=== PATIENT | female | born 1935 | race Caucasian/White ===

== ENCOUNTER 2016-08-15 12:22 | Emergency (ER) | payer MEDICARE, OTHER ==
[2016-08-15] MEDS ORDERED: DIPHTH,PERTUSS(ACELL),TET VAC 0.5 ML VIAL IM ONE ×2 (14:47→14:57)
--- OUTSIDE RECORDS SUMMARY | 2016-08-15 14:52 | XMS REPORT | Continuity of Care Document ---
:1935 Author Organization [facility] Address [address] [place] [address] Phone [phone] Care Team Providers Name Role Phone Cleveland Hanson Primary Care Provider [phone] Source Comments This disclosure is being made pursuant to the Care Everywhere program, applicable federal and state laws, and may not contain all informaitonavailable regarding this patient.[facility] ([facility]) Active Allergies and Adverse Reactions Allergen Noted Date Severity Reactions Comments Cefadroxil Unknown Codeine Stomach Pain Erythromycin 01/16/2012 Urticaria (Hives) Penicillins Urticaria (Hives),Desquamation Current Medications Prescription Sig. Disp. Refills Start Date End Date Status levothyroxine 200 mcg Take 200 mcg by Active tablet mouth every morning before breakfast. dexlansoprazole Take by mouth. Active (DEXILANT) 30 mg CpDM lovaSTATIN 20 mg tablet Take 20 mg by mouth Active every evening. montelukast (SINGULAIR) Take 10 mg by mouth Active 10 mg tablet daily. CHLORHEXIDINE GLUCONATE apply topically. Active EX ALBUTEROL SULFATE INH Use by inhalation. Active fexofenadine 180 mg Take 180 mg by Active tablet mouth daily. albuterol-ipratropium Use 3 mL by Active 2.5-0.5 mg/3 mL inhalation every 6 inhalation solution hours as needed. budesonide (PULMICORT) Use 250 mcg by Active 0.25 mg/2 mL nebulizer inhalation 2 times suspension daily. Vitamin B Comp & C No.4 Take by mouth. Active (SUPER B COMPLEX + C) 150 mg Tab Calcium & Magnesium Take by mouth. Active Carbonates 311-232 mg Tab Flaxseed Oil 1,000 mg cap Take by mouth. Active Mwfcmwszwaqtp-Xo-Cqxa-Min Take by mouth. Active erals (WOMEN'S DAILY MULTIVITAMIN) 18-0.4 mg Tab docusate (STOOL SOFTENER) Take 100 mg by Active 100 mg capsule mouth 2 times daily as needed. aspirin 325 mg EC tablet Take 325 mg by Active mouth daily. Arformoterol (BROVANA) 15 Use by inhalation. 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 18 08/21/2003 9:44 AM CDT Height 1.575 m (5' 2") 01/16/2012 9:31 AM CDT Weight 117.028 kg (258 lb) 01/16/2012 9:31 AM CDT Body Mass Index 47.18 01/16/2012 9:31 AM CDT Oxygen Saturation - - Plan of Care Health Maintenance Due Date Last Done Comments Hepatitis B Vaccine (1 of 3 - Primary Series) 1935 Tdap Vaccine 1948 Lipid Disorder Screening 11/25/1955 Td Vaccine 11/25/1955 Mammogram 1977 Colonoscopy 1987 Zoster Vaccine 1997 Osteoporosis Screening (DXA Bone Density) 2002 Pneumococcal Vaccine (1 of 2 - PCV13) 2002 Influenza Vaccine: Seasonal (#1) 11/30/2015 05/01/2002 HCC Annual Coding Diabetes without Complication 05/01/2016 Results from Last 3 Months Not on file
--- NOTE | 2016-08-15 14:56 | ERNOTE ---
Medical Problem HPI - General Chief Complaint: Laceration Time Seen by Provider: 08/15/16 14:36 Source: patient Exam Limitations: no limitations - Immun/Allergies/Home Medications Immunizations: IMMUNIZATION HX Immunizations Up to Date Yes History of Influenza Vaccine No Hx Pneumococcal Vaccination Yes Allergies/Adverse Reactions: Allergies lidocaine Allergy (Severe, Verified 08/15/16 12:39) Shortness of Breath Penicillins Allergy (Severe, Verified 08/15/16 12:39) Hives bacitracin [From Triple Antibiotic] Allergy (Intermediate, Verified 08/15/16 12: 39) Swelling (Other) bacitracin zinc [From Triple Antibiotic] Allergy (Intermediate, Verified 12:39) Swelling (Other) erythromycin base [Erythromycin Base] Allergy (Intermediate, Verified 08/15/16 12:39) Hives neomycin sulfate [From Triple Antibiotic] Allergy (Intermediate, Verified 12:39) Swelling (Other) polymyxin B [From Triple Antibiotic] Allergy (Intermediate, Verified 08/15/16 12 :39) Swelling (Other) polymyxin B sulfate [From Triple Antibiotic] Allergy (Intermediate, Verified 12:39) Swelling (Other) codeine Allergy (Mild, Verified 08/15/16 12:39) Nausea latex Allergy (Mild, Verified 08/15/16 12:39) Hives Home Medications: HOME MEDICATIONS Albuterol Sulfate [Albuterol Sulfate 2.5 MG/0.5ML] 2.5 mg IH QID 12/28/15 [Last Taken 12/27/15 17:00] Arformoterol Tartrate [Brovana] 15 mcg IH BID 12/28/15 [Last Taken 12/27/15 20: 00] Aspirin [Aspirin Enteric Coated] 325 mg PO DAILY 12/28/15 [Last Taken 12/27/15 19:00] Benzonatate [Tessalon Perle] 100 mg PO TID PRN #30 capsule 12/28/15 [Last Taken Unknown] Budesonide [Pulmicort Respules] 2 ml IH BID 12/28/15 [Last Taken 12/27/15 20:00] Cetirizine HCl [Allergy Relief] 10 mg PO DAILY 12/28/15 [Last Taken 12/27/15 08: 00] Dexlansoprazole [Dexilant] 30 mg PO DAILY 12/28/15 [Last Taken 12/27/15 08:00] Ipratropium [place] [Atrovent] 0.5 mg IH QID 12/28/15 [Last Taken 12/27/15 17:00 ] Levothyroxine Sodium [Synthroid] 150 mcg PO DAILY 12/28/15 [Last Taken 12/27/15 08:00] Losartan Potassium [Cozaar] 50 mg PO DAILY 12/28/15 [Last Taken 12/27/15 08:00] Lovastatin [Altoprev] 20 mg PO DAILY 12/28/15 [Last Taken 12/27/15 19:00] Montelukast Sodium [Singulair] 10 mg PO DAILY 12/28/15 [Last Taken 12/27/15 19: 00] Calcium Carbonate/Vitamin D3 [Calcium 500-Vit D3 600 Tablet] 1 each PO DAILY [Last Taken Unknown] Multivitamin [Multivitamins] 1 each PO DAILY 08/15/16 [Last Taken Unknown] - History of Present History Narrative: Patient was getting a turkey ready for dinner yesterday and cut her hand on a piece of plastic in the turkey. She dressed the wound and it stopped bleeding eventually. She is coming today as told by her doctors office, her last tetanus was at least six years ago Date (Duration): 08/14/16 Time (Timing): 12:00 Review of Systems - Review of Systems Constitutional: Absent: recent illness, fever ENT: Absent: nose congestion, sore throat Cardiology: Absent: chest pain Gastrointestinal/Abdominal: Absent: nausea, abdominal pain Skin: Present: See HPI Neurological: Absent: weakness, numbness - Patient's Past Medical History Patient History - Medical: Arthritis, GERD, Hypothyroidism, Other Patient History - Cardiac/Respiratory: Coronary Heart Disease, COPD, Hypertension Patient History - Cancer: No Hx of Cancer Patient History - Surgical Procedures: Appendectomy, Cholecystectomy, Hysterectomy, T & A, Other Patient History - Other: None - Family History Mother Family History - Medical: Family History - Cardiac/Respiratory: CVA/Stroke, Hypertension Father Family History - Medical: Family History - Cardiac/Respiratory: Asthma, Myocardial Infarction - Social History Living Situations: home Abuse History: No History of abuse Psych History: No pertinent hx Alcohol Use: none Drug Use: none - Immunizations Immunizations Up to Date: Yes Hx Pneumococcal Vaccination: Yes History of Influenza Vaccine: No Physical Exam - Physical Exam General Appearance: Present: wd/wn, alert, no apparent distress, obese Respiratory: Present: no respiratory distress Extremity Exam: Present: normal except - - 2cm laceration over dosal side of right thenar, not bleeding, 1mm gaping, into subcutaneous tissue but not in to muscles, normal tendon fuction Neurological Exam: Present: alert, oriented, normal mood/affect, no motor/ sensory deficits Skin Exam: Present: normal color, warm/dry ED Progress - Vital Signs Patient's Vital Signs:: I have reviewed the patient's vital signs. Vital Signs: Vital Signs 08/15/16 08/15/16 12:36 14:39 Temperature 36.7 C 36.5 C Pulse Rate 69 64 Respiratory 12 18 Rate Blood Pressure 162/83 178/70 O2 Sat by Pulse 98 97 Oximetry - Progress/Reassessment Chief Complaint: Laceration Progress Note-Subjective: 08/15/16 14:40 discussed that wound is too old to be closed, to look for signs of infection, will update tetanus Departure - Departure Clinical Impression: Laceration Disposition: Home self-care Condition: Good Instructions: Nonsutured Laceration Care Additional Instructions: keep the wound dry and covered with bacitracin follow up with your doctor as needed Referrals: Rufina Quinn DO [Primary Care Provider] -
[2016-08-15 17:45] VITALS: BP 146/64
== END 2016-08-15 15:07 | disposition home or self-care (01) ==
LOC: ER 12:22
DX: S61.411A Laceration without foreign body of right hand, initial encounter (principal); W45.8XXA Other foreign body or object entering through skin, initial encounter; Y93.G3 Activity, cooking and baking; Y92.000 Kitchen of unspecified non-institutional (private) residence as the place of occurrence of the external cause; Z23 Encounter for immunization

== ENCOUNTER 2016-08-16 13:24 | Emergency (ER) | payer MEDICARE, OTHER ==
--- OUTSIDE RECORDS SUMMARY | 2016-08-16 13:51 | XMS REPORT | Continuity of Care Document ---
:1935 Author Organization [facility] ([facility]) Address [address] [place] [address] Phone [phone] Care Team Providers Name Role Phone Cleveland Hanson Primary Care Provider [phone] Source Comments This disclosure is being made pursuant to the Care Everywhere program, applicable federal and state laws, and may not contain all informaitonavailable regarding this patient.[facility] ([facility]) Active Allergies and Adverse Reactions Allergen Noted [...] 1,000 mg cap Take by mouth. Active Ethrvtzzuhrjw-An-Dzlw-Min Take by mouth. 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
[2016-08-16 13:57] LABS: Hematocrit 37.5 % (37.0-47.0); Hemoglobin 12.3 gm/dL (12.5-16.0); Mean Cell Volume 90.8 fl (78-100); Mean Corpuscular Hemoglobin 29.8 pg (27-31); Mean Corpuscular Hgb Conc 32.8 g/dl (32-36); Neutrophil # 3.6 K/mm3 (1.3-6.0); Neutrophil % 49.9 % (42-75.0); Platelet Count 178 K/mm3 (150-450); Red Blood Count 4.13 M/mm3 (4.2-5.4); Red Cell Distribution Width 12.7 % (11.5-14.0); White Blood Count 7.2 K/mm3 (4.0-10.5)
[2016-08-16] MEDS ORDERED: KETOROLAC TROMETHAMINE 60 MG/2 ML VIAL IM ONE ×2 (14:04)
[2016-08-16] MEDS ORDERED: KETOROLAC TROMETHAMINE 30 MG/ML VIAL ONE (14:05)
--- NOTE | 2016-08-16 14:05 | ERNOTE ---
Upper Extremity HPI - Narrative Date of Service: 08/16/16 - General Extremities Pain Location: wrist: right Time Seen by Provider: 08/16/16 13:31 Source: patient Exam Limitations: no limitations - Immun/Allergies/Home Medications Immunizations: IMMUNIZATION HX Immunizations Up to Date Yes History of Influenza Vaccine No Hx Pneumococcal Vaccination Yes Allergies/Adverse Reactions: Allergies Allergy/AdvReac Type Severity Reaction Status Date / Time lidocaine Allergy Severe Shortness Verified 08/16/16 13:37 of Breath Penicillins Allergy Severe Hives Verified 08/16/16 13:37 bacitracin Allergy Intermediate Swelling Verified 08/16/16 13:37 [From Triple Antibiotic] (Other) bacitracin zinc Allergy Intermediate Swelling Verified 08/16/16 13:37 [From Triple Antibiotic] (Other) erythromycin base Allergy Intermediate Hives Verified 08/16/16 13:37 [Erythromycin Base] neomycin sulfate Allergy Intermediate Swelling Verified 08/16/16 13:37 [From Triple Antibiotic] (Other) polymyxin B Allergy Intermediate Swelling Verified 08/16/16 13:37 [From Triple Antibiotic] (Other) polymyxin B sulfate Allergy Intermediate Swelling Verified 08/16/16 13:37 [From Triple Antibiotic] (Other) codeine Allergy Mild Nausea Verified 08/16/16 13:37 latex Allergy Mild Hives Verified 08/16/16 13:37 Home Medications: HOME MEDICATIONS Albuterol Sulfate [Albuterol Sulfate 2.5 MG/0.5ML] 2.5 mg IH QID 12/28/15 [Last Taken 12/27/15 17:00] Arformoterol Tartrate [Brovana] 15 mcg IH BID 12/28/15 [Last Taken 12/27/15 20: 00] Aspirin [Aspirin Enteric Coated] 325 mg PO DAILY 12/28/15 [Last Taken 12/27/15 19:00] Benzonatate [Tessalon Perle] 100 mg PO TID PRN #30 capsule 12/28/15 [Last Taken Unknown] Budesonide [Pulmicort Respules] 2 ml IH BID 12/28/15 [Last Taken 12/27/15 20:00] Cetirizine HCl [Allergy Relief] 10 mg PO DAILY 12/28/15 [Last Taken 12/27/15 08: 00] Dexlansoprazole [Dexilant] 30 mg PO DAILY 12/28/15 [Last Taken 12/27/15 08:00] Ipratropium [place] [Atrovent] 0.5 mg IH QID 12/28/15 [Last Taken 12/27/15 17:00 ] Levothyroxine Sodium [Synthroid] 150 mcg PO DAILY 12/28/15 [Last Taken 12/27/15 08:00] Losartan Potassium [Cozaar] 50 mg PO DAILY 12/28/15 [Last Taken 12/27/15 08:00] Lovastatin [Altoprev] 20 mg PO DAILY 12/28/15 [Last Taken 12/27/15 19:00] Montelukast Sodium [Singulair] 10 mg PO DAILY 12/28/15 [Last Taken 12/27/15 19: 00] Calcium Carbonate/Vitamin D3 [Calcium 500-Vit D3 600 Tablet] 1 each PO DAILY [Last Taken Unknown] Multivitamin [Multivitamins] 1 each PO DAILY 08/15/16 [Last Taken Unknown] - History of Present Illness Narrative: Pt. comes in with c/o R lateral wrist pain, redness, and swelling for one day after she pulled a plastic piece out of a turkey and developed a laceration two days ago of her R thumb that was treated in this ED yesterday. Pt. denies any jerking or hitting or wrist. or swelling or redness of the thumb or wrist below thumb. Pt. states taht she took [place] yesterday without relief. Review of Systems - Review of Systems Constitutional: Present: no symptoms reported. Absent: recent illness, fever, chills, weakness, fatigue, malaise EYE: Present: no symptoms reported ENT: Present: no symptoms reported Respiratory: Present: no symptoms reported. Absent: shortness of breath, cough , wheezing Cardiology: Present: no symptoms reported. Absent: chest pain, palpitations, edema Gastrointestinal/Abdominal: Present: no symptoms reported Genitourinary: Present: no symptoms reported Musculoskeletal: Present: joint pain - L lateral wrist below fifth finger. Absent: back pain Skin: Present: other - redness L lateral wrist below fifth finger Neurological: Present: no symptoms reported. Absent: headache, dizziness/light- headedness, numbness, tingling All Other Systems: All systems neg except as marked - Patient's Past Medical History Patient History - Medical: Arthritis, GERD, Hypothyroidism, Other Patient History - Cardiac/Respiratory: Coronary Heart Disease, COPD, Hypertension Patient History - Cancer: No Hx of Cancer Patient History - Surgical Procedures: Appendectomy, Cholecystectomy, Hysterectomy, T & A, Other Patient History - Other: None - Family History Mother Family History - Medical: Family History - Cardiac/Respiratory: CVA/Stroke, Hypertension Father Family History - Medical: Family History - Cardiac/Respiratory: Asthma, Myocardial Infarction - Social History Living Situations: home Abuse History: No History of abuse Psych History: No pertinent hx Alcohol Use: none Drug Use: none - Immunizations Immunizations Up to Date: Yes Hx Pneumococcal Vaccination: Yes History of Influenza Vaccine: No Physical Exam - Physical Exam General Appearance: Present: wd/wn, alert, no apparent distress Eye Exam: Normal inspection: bilateral, PERRL: bilateral, EOMI: bilateral Ears, Nose, Throat: Present: normal ENT inspection, normal pharynx Neck: Present: normal inspection, nontender. Absent: lymphadenopathy (R), lymphadenopathy (L) Respiratory: Present: no respiratory distress, normal breath sounds, no accessory muscle use, chest nontender, lungs clear Cardiovascular/Chest: Present: regular rate, rhythm, no murmur, normal peripheral pulses Gastrointestinal/Abdominal: Present: normal bowel sounds, nontender, nondistended, soft, no organomegaly Back Exam: Present: normal inspection, normal range of motion, no CVA tenderness , no vertebral tenderness Extremity Exam: Present: decreased range of motion - L hand, extremity edema - Arera 3cm x 4 cm Neurological Exam: Present: alert, oriented, normal mood/affect, no motor/ sensory deficits Skin Exam: Present: normal color, warm/dry. Absent: pallor, skin rash ED Progress - Date and Time Seen: Date and Time: 08/16/16 14:[address] valadez and she states that pt. had bruising in this area yesterday therefore this is likely contusion. - Results and Orders Patient's Lab Results:: I have reviewed the patient's lab results. - Vital Signs Patient's Vital Signs:: I have reviewed the patient's vital signs. Vital Signs: Vital Signs 08/16/16 13:32 Temperature 36.7 C Pulse Rate 81 Respiratory 12 Rate Blood Pressure 170/59 O2 Sat by Pulse 96 Oximetry - X-Ray X-Ray #1 X-Ray: wrist Interpretation: Reviewed by me X-ray Comments: no acute - Progress/Reassessment Chief Complaint: Hand Injury/Pain Departure Clinical Impression: Wrist contusion Qualifiers: Encounter type: initial encounter Laterality: right Qualified Code(s): S60.211A - Contusion of right wrist, initial encounter - Departure Disposition: Home self-care Condition: Good Instructions: Contusion, [id number] Additional Instructions: Please follow up with primary provider in 2-3 days. May take Tylenol for pain as needed please keep wrapped except for dressing changes at all times for a week. Referrals: Rufina Quinn DO [Primary Care Provider] -
[2016-08-16 14:10] LABS: Albumin * 3.7 gm/dl (3.4-5.0); Anion Gap 8.6 mmol/L (6.8-13.8); BUN/Creatinine Ratio 16.5 (9.0-21.6); Bilirubin, Total 0.6 mg/dL (0.0-1.1); CRP 0.5 mg/dL (0.0-0.9); Ca. Corrected For Albumin 8.6 mg/dL (8.4-10.2); Calcium * 8.7 mg/dL (7.9-10.9); Carbon Dioxide 32.3 mmol/L (24-32.6); Potassium 3.9 mmol/L (3.4-4.6); Total Protein 7.5 gm/dL (6.2-8.2); Uric Acid 4.9 mg/dL (2.6-7.2)
[2016-08-16 14:53] VITALS: BP 179/44
== END 2016-08-16 14:54 | disposition home or self-care (01) ==
LOC: ER 13:24
DX: S60.211A Contusion of right wrist, initial encounter (principal); X58.XXXA Exposure to other specified factors, initial encounter; I25.10 Atherosclerotic heart disease of native coronary artery without angina pectoris; E03.9 Hypothyroidism, unspecified

== ENCOUNTER 2016-08-22 18:07 | Emergency (ER) | payer MEDICARE, OTHER ==
--- OUTSIDE RECORDS SUMMARY | 2016-08-22 18:49 | XMS REPORT | Continuity of Care Document ---
:1935 Author Organization [facility] ([facility]) Address [address] [place] [address] Phone [phone] Care Team Providers Name Role Phone Cleveland Hanson Primary Care Provider [phone] Source Comments This disclosure is being made pursuant to the Care Everywhere program, applicable federal and state laws, and may not contain all informaitonavailable regarding this patient.[facility] ([facility]) Active Allergies and Adverse Reactions Allergen [...] 1,000 mg cap Take by mouth. Active Tyscfzkzhaehn-Zx-Zysw-Min Take by mouth. 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
[2016-08-22 18:53] LABS: Hematocrit 38.5 % (37.0-47.0); Hemoglobin 12.6 gm/dL (12.5-16.0); Mean Cell Volume 90.4 fl (78-100); Mean Corpuscular Hemoglobin 29.6 pg (27-31); Mean Corpuscular Hgb Conc 32.7 g/dl (32-36); Mean Platelet Volume 10.1 fl (6.0-9.5); Platelet Count 180 K/mm3 (150-450); Red Blood Count 4.26 M/mm3 (4.2-5.4); Red Cell Distribution Width 12.7 % (11.5-14.0); White Blood Count 6.1 K/mm3 (4.0-10.5)
[2016-08-22 18:59] LABS: Total Cells Counted 100
[2016-08-22 19:06] LABS: Troponin I Less than 0.017 ng/ml (0.00-0.10)
[2016-08-22 19:14] LABS: ALT 28 U/L (19-67); AST 27 U/L (0-48); Albumin * 3.6 gm/dl (3.4-5.0); Alkaline Phosphatase * 39 U/L (50-170); Anion Gap 11.1 mmol/L (6.8-13.8); BNP * 135 pg/mL (5-550); BUN/Creatinine Ratio 21.2 (9.0-21.6); Bilirubin, Total 0.3 mg/dL (0.0-1.1); Blood Urea Nitrogen 18 mg/dL (3-23); Carbon Dioxide 29.8 mmol/L (24-32.6); Chloride 103 mmol/L (97-106); Glucose * 110 mg/dL (70-110); Potassium 3.9 mmol/L (3.4-4.6); Sodium 140 mmol/L (132-142); Total Protein 7.8 gm/dL (6.2-8.2)
--- NOTE | 2016-08-22 19:21 | ERNOTE ---
Dyspnea - Date Date of Service: 08/22/16 - General Presenting Symptoms: difficulty of breathing Time Seen by Provider: 08/22/16 18:34 Source: patient, RN notes reviewed, old records Exam Limitations: no limitations - Immun/Allergies/Home Medications Immunizations: IMMUNIZATION HX Immunizations Up to Date Yes History of Influenza Vaccine No Hx Pneumococcal Vaccination Yes Allergies/Adverse Reactions: Allergies lidocaine Allergy (Severe, Verified 08/16/16 13:37) Shortness of Breath Penicillins Allergy (Severe, Verified 08/16/16 13:37) Hives bacitracin [From Triple Antibiotic] Allergy (Intermediate, Verified 08/16/16 13: 37) Swelling (Other) bacitracin zinc [From Triple Antibiotic] Allergy (Intermediate, Verified 13:37) Swelling (Other) erythromycin base [Erythromycin Base] Allergy (Intermediate, Verified 08/16/16 13:37) Hives neomycin sulfate [From Triple Antibiotic] Allergy (Intermediate, Verified 13:37) Swelling (Other) polymyxin B [From Triple Antibiotic] Allergy (Intermediate, Verified 08/16/16 13 :37) Swelling (Other) polymyxin B sulfate [From Triple Antibiotic] Allergy (Intermediate, Verified 13:37) Swelling (Other) codeine Allergy (Mild, Verified 08/16/16 13:37) Nausea latex Allergy (Mild, Verified 08/16/16 13:37) Hives Home Medications: HOME MEDICATIONS Albuterol Sulfate [Albuterol Sulfate 2.5 MG/0.5ML] 2.5 mg IH QID 12/28/15 [Last Taken 12/27/15 17:00] Arformoterol Tartrate [Brovana] 15 mcg IH BID 12/28/15 [Last Taken 12/27/15 20: 00] Aspirin [Aspirin Enteric Coated] 325 mg PO DAILY 12/28/15 [Last Taken 12/27/15 19:00] Benzonatate [Tessalon Perle] 100 mg PO TID PRN #30 capsule 12/28/15 [Last Taken Unknown] Budesonide [Pulmicort Respules] 2 ml IH BID 12/28/15 [Last Taken 12/27/15 20:00] Cetirizine HCl [Allergy Relief] 10 mg PO DAILY 12/28/15 [Last Taken 12/27/15 08: 00] Dexlansoprazole [Dexilant] 30 mg PO DAILY 12/28/15 [Last Taken 12/27/15 08:00] Ipratropium [place] [Atrovent] 0.5 mg IH QID 12/28/15 [Last Taken 12/27/15 17:00 ] Levothyroxine Sodium [Synthroid] 150 mcg PO DAILY 12/28/15 [Last Taken 12/27/15 08:00] Losartan Potassium [Cozaar] 50 mg PO DAILY 12/28/15 [Last Taken 12/27/15 08:00] Lovastatin [Altoprev] 20 mg PO DAILY 12/28/15 [Last Taken 12/27/15 19:00] Montelukast Sodium [Singulair] 10 mg PO DAILY 12/28/15 [Last Taken 12/27/15 19: 00] Calcium Carbonate/Vitamin D3 [Calcium 500-Vit D3 600 Tablet] 1 each PO DAILY [Last Taken Unknown] Multivitamin [Multivitamins] 1 each PO DAILY 08/15/16 [Last Taken Unknown] Ascorbic Acid [Vitamin C] 1,000 mg PO 08/22/16 [Last Taken Unknown] Cholecalciferol (Vitamin D3) [Vitamin D3] 1,000 unit PO DAILY 08/22/16 [Last Taken Unknown] Cyanocobalamin (Vitamin B-12) [Vitamin B12] 2,500 mcg PO DAILY 08/22/16 [Last Taken Unknown] predniSONE [Prednisone] 2 tab PO DAILY #14 tab 08/22/16 [Last Taken Unknown] - History of Present Illness Narrative: 80 y/o female to the ED for a cough that began 4 days ago and has gradually gotten worse, to the point where she became short of breath this afternoon. She did a nebulizer treatment at home and reports that her O2 sat was 90% on room air afterward. She normally is in the mid 90's, and is currently 96% on room air. She does wear oxygen at night. She believes that her symptoms are due to eating smoked salmon since "smoke" aggravates her allergies and asthma. Date (Duration): 08/18/16 Associated Symptoms-Dyspnea: Reports: cough, wheezing, ankle/leg swelling - chronic, not worse than usual. Denies: fever/chills, sweating, chest pain/ discomfort, leg/calf pain, dizziness, lightheadedness, weakness, loss of appetite Prior Treatment: Denies: recently seen, currently on antibiotics Review of Systems - Review of Systems Constitutional: Present: fatigue, malaise. Absent: fever, chills EYE: Present: no symptoms reported ENT: Present: sore throat. Absent: ear pain, nose congestion, nasal drainage Respiratory: Present: shortness of breath, cough, wheezing Cardiology: Present: edema. Absent: chest pain, palpitations, claudication Gastrointestinal/Abdominal: Absent: nausea, vomiting, abdominal pain Genitourinary: Present: no symptoms reported Musculoskeletal: Present: no symptoms reported Skin: Absent: rash, lesions Neurological: Absent: headache, dizziness/light-headedness Endocrine: Present: no symptoms reported Hematologic/Lymphatic: Present: no symptoms reported Psych: Present: no symptoms reported - Patient's Past Medical History Patient History - Medical: Arthritis, GERD, Hypothyroidism, Other Patient History - Cardiac/Respiratory: Asthma, Coronary Heart Disease, COPD, Hypertension Patient History - Cancer: No Hx of Cancer Patient History - Surgical Procedures: Appendectomy, Cholecystectomy, Hysterectomy, T & A, Other Patient History - Other: None - Family History Mother Family History - Medical: Family History - Cardiac/Respiratory: CVA/Stroke, Hypertension Father Family History - Medical: Family History - Cardiac/Respiratory: Asthma, Myocardial Infarction - Social History Living Situations: spouse Abuse History: No History of abuse Psych History: No pertinent hx Smoking Status: Former smoker Alcohol Use: none Drug Use: none - Immunizations Immunizations Up to Date: Yes Hx Pneumococcal Vaccination: Yes History of Influenza Vaccine: No Physical Exam - Physical Exam General Appearance: Present: wd/wn, alert, mild distress Eye Exam: Normal inspection: bilateral Ears, Nose, Throat: Present: normal ENT inspection Neck: Present: normal inspection, nontender, supple Respiratory: Present: accessory muscle use, decreased breath sounds, expiration (prolonged), wheezing Cardiovascular/Chest: Present: regular rate, rhythm, no murmur, normal peripheral pulses Gastrointestinal/Abdominal: Present: nontender, nondistended, soft Extremity Exam: Present: non-tender, normal range of motion, pedal edema. Absent: calf tenderness Neurological Exam: Present: alert, oriented, normal mood/affect, no motor/ sensory deficits Skin Exam: Present: normal color, warm/dry ED Progress - Results and Orders Patient's Lab Results:: I have reviewed the patient's lab results. - Vital Signs Patient's Vital Signs:: I have reviewed the patient's vital signs. Vital Signs: Vital Signs 08/22/16 18:15 Temperature 36.8 C Pulse Rate 80 Respiratory 20 Rate Blood Pressure 169/72 O2 Sat by Pulse 96 Oximetry - EKG EKG: NSR, premature ventricular contraction EKG read: Reviewed by me - X-Ray X-Ray #1 X-Ray: chest Interpretation: Reviewed by me X-ray Comments: Technique: Frontal and lateral views of the chest are evaluated. (2) views. Comparison: Prior exams, most recent is March 11, 2016. Findings: There are overlying ECG leads. The lungs are symmetrically inflated. No focal consolidation. No pneumothorax or pleural effusion. Scattered calcified granulomas. Scattered areas of parenchymal scarring. The mediastinum, cardiac silhouette and pulmonary vascularity are within normal limits. The osseous structures are remarkable for degenerative changes. 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 No acute osseous findings. IMPRESSION: No acute pulmonary findings. Electronically signed by José Webb D.O.. - Progress/Reassessment Chief Complaint: Dyspnea Progress:: Improved Departure Clinical Impression: Acute asthma - Departure Disposition: Home Follow Up Needed Condition: Stable Instructions: Asthma, Adult, [id number] Additional Instructions: Start prednisone tomorrow morning Continue your other medications See your doctor as scheduled later this week, or return to ER if symptoms worsen before Referrals: Rufina Quinn DO [Primary Care Provider] - Prescriptions: predniSONE [Prednisone] 2 tab PO DAILY #14 tab
[2016-08-22] MEDS ORDERED: ALBUTEROL SULFATE/IPRATROPIUM 3 ML NEBU IH ONE ×2 (19:34→19:45)
[2016-08-22] MEDS ORDERED: BUDESONIDE 0.5 MG/2 ML VIAL.NEB IH ONE ×2 (19:34→19:42)
[2016-08-22] MEDS ORDERED: predniSONE 20 MG TABLET PO ONE (19:34)
[2016-08-22] MEDS ORDERED: predniSONE 20 MG TABLET ONE (19:42)
[2016-08-22 19:53] LABS: Urine Bilirubin Negative (NEGATIVE); Urine Ketone Negative (NEGATIVE); Urine Nitrite Negative (NEGATIVE); Urine Protein Negative (NEGATIVE); Urine Specific Gravity 1.015 SP.GR. (1.005-1.010); Urine Urobilinogen Normal (NORMAL)
[2016-08-22 20:05] LABS: Urine Appearance Clear; Urine Bacteria 1+; Urine Blood 10 /ul (NEGATIVE); Urine Color Yellow; Urine RBC None Seen /hpf (0-5); Urine WBC None Seen /hpf (0-5)
[2016-08-22 20:17] LABS: Atypical (Reactive) Lymph 1 % (0-2); Band 6 % (0-2.0); Basophil 2 % (0-1); Eosinophil 3 % (0-3); Lymphocyte 14 % (20-51); Monocyte 13 % (0-9); Neutrophil 61 % (42-75); Neutrophil # 3.7 K/mm3 (1.3-6.0)
[2016-08-22 20:19] LABS: Dohle Bodies Trace; Platelet Estimate Normal (NORMAL); Polychromasia Trace; RBC Morphology Normal (NORMAL)
[2016-08-22 20:48] VITALS: BP 164/86
== END 2016-08-22 20:51 | disposition home or self-care (01) ==
LOC: ER 18:07
DX: J45.909 Unspecified asthma, uncomplicated (principal); Z87.891 Personal history of nicotine dependence

== ENCOUNTER 2017-02-26 13:23 | Emergency (ER) | payer MEDICARE, OTHER ==
[2017-02-26 13:39] VITALS: BP 138/81
[2017-02-26] MEDS ORDERED: diphenhydrAMINE HCL 12.5 MG/5 ML BTL PO ONE (13:58)
[2017-02-26] MEDS ORDERED: NYSTATIN 60 ML BTL PO ONE (13:58)
[2017-02-26] MEDS ORDERED: MAG HYDROX/ALUMINUM HYD/SIMETH 30 ML UDC PO ONE (13:58)
--- NOTE | 2017-02-26 14:08 | ERNOTE ---
Date of Service: 02/26/17 Time Seen by Provider: 02/26/17 13:44 Stated Complaint: SICK Presenting Symptoms:: sore throat Source: patient Exam Limitations: no limitations Immunizations: IMMUNIZATION HX Immunizations Up to Date Yes History of Influenza Vaccine Yes Hx Pneumococcal Vaccination Yes Allergies/Adverse Reactions: Allergies lidocaine Allergy (Severe, Verified 02/26/17 13:39) Shortness of Breath Penicillins Allergy (Severe, Verified 02/26/17 13:39) Hives bacitracin [From Triple Antibiotic] Allergy (Intermediate, Verified 02/26/17 13: 39) Swelling (Other) bacitracin zinc [From Triple Antibiotic] Allergy (Intermediate, Verified 13:39) Swelling (Other) erythromycin base [Erythromycin Base] Allergy (Intermediate, Verified 02/26/17 13:39) Hives neomycin sulfate [From Triple Antibiotic] Allergy (Intermediate, Verified 13:39) Swelling (Other) polymyxin B [From Triple Antibiotic] Allergy (Intermediate, Verified 02/26/17 13 :39) Swelling (Other) polymyxin B sulfate [From Triple Antibiotic] Allergy (Intermediate, Verified 13:39) Swelling (Other) codeine Allergy (Mild, Verified 02/26/17 13:39) Nausea latex Allergy (Mild, Verified 02/26/17 13:39) Hives Home Medications: HOME MEDICATIONS Albuterol Sulfate [Albuterol Sulfate 2.5 MG/0.5ML] 2.5 mg IH QID 12/28/15 [Last Taken 12/27/15 17:00] Arformoterol Tartrate [Brovana] 15 mcg IH BID 12/28/15 [Last Taken 12/27/15 20: 00] Aspirin [Aspirin Enteric Coated] 325 mg PO DAILY 12/28/15 [Last Taken 12/27/15 19:00] Benzonatate [Tessalon Perle] 100 mg PO TID PRN #30 capsule 12/28/15 [Last Taken Unknown] Budesonide [Pulmicort Respules] 2 ml IH BID 12/28/15 [Last Taken 12/27/15 20:00] Cetirizine HCl [Allergy Relief] 10 mg PO DAILY 12/28/15 [Last Taken 12/27/15 08: 00] Dexlansoprazole [Dexilant] 30 mg PO DAILY 12/28/15 [Last Taken 12/27/15 08:00] Ipratropium [place] [Atrovent] 0.5 mg IH QID 12/28/15 [Last Taken 12/27/15 17:00 ] Levothyroxine Sodium [Synthroid] 150 mcg PO DAILY 12/28/15 [Last Taken 12/27/15 08:00] Losartan Potassium [Cozaar] 50 mg PO DAILY 12/28/15 [Last Taken 12/27/15 08:00] Lovastatin [Altoprev] 20 mg PO DAILY 12/28/15 [Last Taken 12/27/15 19:00] Montelukast Sodium [Singulair] 10 mg PO DAILY 12/28/15 [Last Taken 12/27/15 19: 00] Calcium Carbonate/Vitamin D3 [Calcium 500-Vit D3 600 Tablet] 1 each PO DAILY [Last Taken Unknown] Multivitamin [Multivitamins] 1 each PO DAILY 08/15/16 [Last Taken Unknown] Ascorbic Acid [Vitamin C] 1,000 mg PO 08/22/16 [Last Taken Unknown] Cholecalciferol (Vitamin D3) [Vitamin D3] 1,000 unit PO DAILY 08/22/16 [Last Taken Unknown] Cyanocobalamin (Vitamin B-12) [Vitamin B12] 2,500 mcg PO DAILY 08/22/16 [Last Taken Unknown] predniSONE [Prednisone] 2 tab PO DAILY #14 tab 08/22/16 [Last Taken Unknown] - History of Present Ilness Narrative: Pt. comes in with c/o sore throat and mouth that radiates down pt. neck for a week. Pt. asthma medications were changed 2 weeks ago by her defect cutter to symbicort and spiriva from [facility]. Pt. denies any SOB, CP, ND, fever, but does state that she has a chronic cough that is unchanged for her. Review of Systems - Review of Systems Constitutional: Present: no symptoms reported. Absent: recent illness, fever, chills, weakness, fatigue, malaise EYE: Present: no symptoms reported ENT: Present: sore throat. Absent: nose pain, nose congestion, nasal drainage Respiratory: Present: cough - chronic. Absent: shortness of breath, wheezing Cardiology: Present: no symptoms reported. Absent: chest pain, palpitations, edema Gastrointestinal/Abdominal: Present: no symptoms reported. Absent: nausea, vomiting, diarrhea, abdominal pain Genitourinary: Present: no symptoms reported. Absent: frequency, pain, dysuria , decreased urinary output Musculoskeletal: Present: no symptoms reported. Absent: back pain, joint pain Skin: Present: no symptoms reported. Absent: rash Neurological: Present: no symptoms reported. Absent: headache, dizziness/light- headedness, numbness, tingling Endocrine: Present: no symptoms reported Hematologic/Lymphatic: Present: no symptoms reported All Other Systems: All systems neg except as marked - Patient's Past Medical History Patient History - Medical: Arthritis, GERD, Hypothyroidism Patient History - Cardiac/Respiratory: Asthma, Coronary Heart Disease, COPD, Hypertension Patient History - Cancer: No Hx of Cancer Patient History - Surgical Procedures: Appendectomy, Cholecystectomy, Hysterectomy, T & A, Other Patient History - Other: None - Family History Mother Family History - Medical: Family History - Cardiac/Respiratory: CVA/Stroke, Hypertension Father Family History - Medical: Family History - Cardiac/Respiratory: Asthma, Myocardial Infarction - Social History Abuse History: No History of abuse Psych History: No pertinent hx Smoking Status: Current some day smoker Have you smoked in the past 12 months: No - Immunizations Immunizations Up to Date: Yes Hx Pneumococcal Vaccination: Yes History of Influenza Vaccine: Yes Physical Exam - Physical Exam General Appearance: Present: wd/wn, alert, no apparent distress Head Exam: Present: normal inspection, no evidence of injury Eye Exam: Normal inspection: bilateral, PERRL: bilateral, EOMI: bilateral Ears, Nose, Throat: Present: pharyngeal erythema, other - white coating to throat, tongue, and post pharynx Neck: Present: normal inspection, nontender. Absent: lymphadenopathy (R), lymphadenopathy (L) Respiratory: Present: no respiratory distress, normal breath sounds, no accessory muscle use, chest nontender, lungs clear Cardiovascular/Chest: Present: regular rate, rhythm, no murmur, normal peripheral pulses Gastrointestinal/Abdominal: Present: nontender Back Exam: Present: normal inspection, normal range of motion, no CVA tenderness , no vertebral tenderness Extremity Exam: Present: normal inspection, non-tender, normal range of motion, no edema Neurological Exam: Present: alert, oriented, normal mood/affect, no motor/ sensory deficits Skin Exam: Present: normal color, warm/dry. Absent: pallor, skin rash ED Progress - Vital Signs Patient's Vital Signs:: I have reviewed the patient's vital signs. Vital Signs: Vital Signs 02/26/17 13:35 Temperature 37.1 C Pulse Rate 72 Respiratory 16 Rate Blood Pressure 138/81 O2 Sat by Pulse 98 Oximetry - Progress/Reassessment Chief Complaint: Upper Respiratory Symptoms Progress:: Improved Departure Clinical Impression: Thrush of mouth and esophagus - Departure Disposition: Home self-care Condition: Good Instructions: Thrush, Adult, [id number] Additional Instructions: Please follow up with primary provider in 2-3 days. Referrals: Rufina Quinn DO [Primary Care Provider] -
== END 2017-02-26 14:13 | disposition home or self-care (01) ==
LOC: ER 13:23
DX: B37.81 Candidal esophagitis (principal); B37.0 Candidal stomatitis; F17.200 Nicotine dependence, unspecified, uncomplicated

== ENCOUNTER 2017-03-16 17:16 | Emergency (ER) | payer MEDICARE, OTHER ==
[2017-03-16] MEDS ORDERED: ALBUTEROL SULFATE 2.5 MG/0.5 ML VIAL.NEB IH ONE ×2 (17:38→18:26)
[2017-03-16 17:53] LABS: Hematocrit 37.3 % (37.0-47.0); Hemoglobin 12.2 gm/dL (12.5-16.0); Mean Cell Volume 90.1 fl (78-100); Mean Corpuscular Hemoglobin 29.5 pg (27-31); Mean Corpuscular Hgb Conc 32.7 g/dl (32-36); Mean Platelet Volume 9.5 fl (6.0-9.5); Neutrophil # 3.3 K/mm3 (1.3-6.0); Neutrophil % 47.6 % (42-75.0); Platelet Count 227 K/mm3 (150-450); Red Blood Count 4.14 M/mm3 (4.2-5.4); Red Cell Distribution Width 13.3 % (11.5-14.0)
--- NOTE | 2017-03-16 18:02 | ERNOTE ---
Dyspnea - Date Date of Service: 03/16/17 - General Time Seen by Provider: 03/16/17 17:29 Source: patient Exam Limitations: no limitations - Immun/Allergies/Home Medications Immunizations: IMMUNIZATION HX Immunizations Up to Date Yes History of Influenza Vaccine Yes Hx Pneumococcal Vaccination Yes Allergies/Adverse Reactions: Allergies lidocaine Allergy (Severe, Verified 03/16/17 17:28) Shortness of Breath Penicillins Allergy (Severe, Verified 03/16/17 17:28) Hives bacitracin [From Triple Antibiotic] Allergy (Intermediate, Verified 03/16/17 17: 28) Swelling (Other) bacitracin zinc [From Triple Antibiotic] Allergy (Intermediate, Verified 17:28) Swelling (Other) erythromycin base [Erythromycin Base] Allergy (Intermediate, Verified 03/16/17 17:28) Hives neomycin sulfate [From Triple Antibiotic] Allergy (Intermediate, Verified 17:28) Swelling (Other) polymyxin B [From Triple Antibiotic] Allergy (Intermediate, Verified 03/16/17 17 :28) Swelling (Other) polymyxin B sulfate [From Triple Antibiotic] Allergy (Intermediate, Verified 17:28) Swelling (Other) codeine Allergy (Mild, Verified 03/16/17 17:28) Nausea latex Allergy (Mild, Verified 03/16/17 17:28) Hives Home Medications: HOME MEDICATIONS Albuterol Sulfate [Albuterol Sulfate 2.5 MG/0.5ML] 2.5 mg IH QID 12/28/15 [Last Taken 12/27/15 17:00] Arformoterol Tartrate [Brovana] 15 mcg IH BID 12/28/15 [Last Taken 12/27/15 20: 00] Aspirin [Aspirin Enteric Coated] 325 mg PO DAILY 12/28/15 [Last Taken 12/27/15 19:00] Benzonatate [Tessalon Perle] 100 mg PO TID PRN #30 capsule 12/28/15 [Last Taken Unknown] Budesonide [Pulmicort Respules] 2 ml IH BID 12/28/15 [Last Taken 12/27/15 20:00] Cetirizine HCl [Allergy Relief] 10 mg PO DAILY 12/28/15 [Last Taken 12/27/15 08: 00] Dexlansoprazole [Dexilant] 30 mg PO DAILY 12/28/15 [Last Taken 12/27/15 08:00] Ipratropium [place] [Atrovent] 0.5 mg IH QID 12/28/15 [Last Taken 12/27/15 17:00 ] Levothyroxine Sodium [Synthroid] 150 mcg PO DAILY 12/28/15 [Last Taken 12/27/15 08:00] Losartan Potassium [Cozaar] 50 mg PO DAILY 12/28/15 [Last Taken 12/27/15 08:00] Lovastatin [Altoprev] 20 mg PO DAILY 12/28/15 [Last Taken 12/27/15 19:00] Montelukast Sodium [Singulair] 10 mg PO DAILY 12/28/15 [Last Taken 12/27/15 19: 00] Calcium Carbonate/Vitamin D3 [Calcium 500-Vit D3 600 Tablet] 1 each PO DAILY [Last Taken Unknown] Multivitamin [Multivitamins] 1 each PO DAILY 08/15/16 [Last Taken Unknown] Ascorbic Acid [Vitamin C] 1,000 mg PO 08/22/16 [Last Taken Unknown] Cholecalciferol (Vitamin D3) [Vitamin D3] 1,000 unit PO DAILY 08/22/16 [Last Taken Unknown] Cyanocobalamin (Vitamin B-12) [Vitamin B12] 2,500 mcg PO DAILY 08/22/16 [Last Taken Unknown] predniSONE [Prednisone] 2 tab PO DAILY #14 tab 08/22/16 [Last Taken Unknown] Doxycycline Monohydrate 100 mg PO BID #20 tablet 03/16/17 [Last Taken Unknown] Fluconazole [Diflucan] 150 mg PO DAILY #21 tablet 03/16/17 [Last Taken Unknown] predniSONE [Prednisone] 3 tab PO DAILY #9 tab 03/16/17 [Last Taken Unknown] - History of Present Illness Narrative: Pt. comes in with c/o dyspnea for two weeks. Pt. states that she saw her assistant analyst for follow up after having thrush at the beginning of March and her medications were changed to symbicort from pulmocort nebulizers and albuterol. Pt. denies any alleviation of symptoms despite pt. increasing the frequency of her albuterol nebulizers. Pt. also has thrush and states that she stopped taking the medication after two weeks but was only taking half of the dose and the symptoms returned when she stopped last week. Severity: moderate Treatment CORRESPONDENCE ANALYST: by patient, albuterol Initiating event: Reports: unknown Frequency of episodes: Reports: frequent episodes, chronic episodes Modifying Factors - (Improves): Reports: albuterol Modifying Factors (Worsens): Reports: activity, coughing Associated Symptoms-Dyspnea: Reports: cough, ankle/leg swelling Review of Systems - Review of Systems Constitutional: Present: no symptoms reported. Absent: fever, chills, weakness , fatigue, malaise EYE: Present: no symptoms reported ENT: Present: other - mouth sores Respiratory: Present: shortness of breath, cough, wheezing Cardiology: Present: no symptoms reported. Absent: chest pain, palpitations, edema Gastrointestinal/Abdominal: Present: no symptoms reported. Absent: nausea, vomiting, diarrhea Genitourinary: Present: no symptoms reported Musculoskeletal: Present: no symptoms reported. Absent: back pain, joint pain Skin: Present: no symptoms reported. Absent: rash, change in hair/nails Neurological: Present: no symptoms reported. Absent: headache, dizziness/light- headedness, numbness, tingling All Other Systems: All systems neg except as marked - Patient's Past Medical History Patient History - Medical: Arthritis, GERD, Hypothyroidism Patient History - Cardiac/Respiratory: Asthma, Coronary Heart Disease, COPD, Hypertension Patient History - Cancer: No Hx of Cancer Patient History - Surgical Procedures: Appendectomy, Cholecystectomy, Hysterectomy, T & A, Other Patient History - Other: None - Family History Mother Family History - Medical: Family History - Cardiac/Respiratory: CVA/Stroke, Hypertension Father Family History - Medical: Family History - Cardiac/Respiratory: Asthma, Myocardial Infarction - Social History Living Situations: home Abuse History: No History of abuse Psych History: No pertinent hx Smoking Status: Former smoker - Immunizations Immunizations Up to Date: Yes Hx Pneumococcal Vaccination: Yes History of Influenza Vaccine: Yes Physical Exam - Physical Exam General Appearance: Present: wd/wn, alert, no apparent distress Head Exam: Present: normal inspection, no evidence of injury Eye Exam: Normal inspection: bilateral, PERRL: bilateral, EOMI: bilateral Ears, Nose, Throat: Present: other - blisters on toungue and oral pharynx Neck: Present: normal inspection, nontender, supple, full range of motion. Absent: lymphadenopathy (R), lymphadenopathy (L) Respiratory: Present: no respiratory distress, decreased breath sounds, crackles , rhonchi. Absent: respiratory distress, wheezing Cardiovascular/Chest: Present: regular rate, rhythm, no murmur, normal peripheral pulses Gastrointestinal/Abdominal: Present: normal bowel sounds, nontender, nondistended, soft, no organomegaly Back Exam: Present: normal inspection, normal range of motion, no CVA tenderness , no vertebral tenderness Extremity Exam: Present: non-tender, normal range of motion, extremity edema - + 4 pitting Neurological Exam: Present: alert, oriented, normal mood/affect, no motor/ sensory deficits, sample paster II-XII nml as tested, normal cerebellar test Skin Exam: Present: normal color, warm/dry. Absent: pallor, skin rash ED Progress - Date and Time Seen: Date and Time: 03/16/17 18:56 Given pt.s worsening fungal infection and no pneumonia feel taht pt. likely has a tracheal infection so will start pt. on antifungal oral as well as swish and swallow and antibiotic and steroid burst for COPD exacerbation. Discussed with Dr Polo and he agrees with plan. - Results and Orders Patient's Lab Results:: I have reviewed the patient's lab results. - Vital Signs Patient's Vital Signs:: I have reviewed the patient's vital signs. Vital Signs: Vital Signs 03/16/17 17:22 Temperature 36.8 C Pulse Rate 81 Respiratory 17 Rate Blood Pressure 174/57 O2 Sat by Pulse 96 Oximetry - X-Ray X-Ray #1 X-Ray: chest Interpretation: Reviewed by me X-ray Comments: no consolidation, no atelactasis. - Progress/Reassessment Chief Complaint: Dyspnea Progress:: Improved Departure Clinical Impression: COPD exacerbation, Fungal infection of upper respiratory tract - Departure Disposition: Home self-care Condition: Good Instructions: Upper Respiratory Infection, Adult, [id number], Acute Bronchitis Additional Instructions: Please follow up with Dr Swan office in 1-2 days. Please continue Nytatin swish and spit for 2 more weeks twice a day. Please continue albuterol nebulizer every 4 hours as needed. Prescriptions: Doxycycline Monohydrate 100 mg PO BID #20 tablet Fluconazole [Diflucan] 150 mg PO DAILY #21 tablet predniSONE [Prednisone] 3 tab PO DAILY #9 tab
[2017-03-16 18:16] LABS: Albumin * 3.4 gm/dl (3.4-5.0); Anion Gap 11.4 mmol/L (6.8-13.8); BUN/Creatinine Ratio 13.4 (9.0-21.6); Bilirubin, Total 0.3 mg/dL (0.0-1.1); Ca. Corrected For Albumin 9.5 mg/dL (8.4-10.2); Calcium * 9.3 mg/dL (7.9-10.9); Carbon Dioxide 30.8 mmol/L (24-32.6); Potassium 4.2 mmol/L (3.4-4.6); Total Protein 7.7 gm/dL (6.2-8.2)
[2017-03-16 18:43] LABS: Urine Bilirubin Negative (NEGATIVE); Urine Ketone Negative (NEGATIVE); Urine Nitrite Negative (NEGATIVE); Urine Protein Negative (NEGATIVE); Urine Specific Gravity <=1.005 SP.GR. (1.005-1.010); Urine Urobilinogen Normal (NORMAL)
[2017-03-16 18:57] LABS: Urine Appearance Clear; Urine Blood 5 /ul (NEGATIVE); Urine Color Pale Yellow
[2017-03-16 18:58] LABS: Urine Bacteria None Seen; Urine RBC None Seen /hpf (0-5); Urine WBC None Seen /hpf (0-5)
[2017-03-16] MEDS ORDERED: DOXYCYCLINE HYCLATE 100 MG TABLET PO ONE (19:05)
[2017-03-16] MEDS ORDERED: FLUCONAZOLE 100 MG TABLET PO ONE (19:05)
[2017-03-16] MEDS ORDERED: METHYLPREDNISOLONE ACETATE 80 MG/ML VIAL IM ONE (19:06)
[2017-03-16] MEDS ORDERED: DOXYCYCLINE HYCLATE 100 MG TABLET ONE (19:12)
[2017-03-16] MEDS ORDERED: METHYLPREDNISOLONE ACETATE 80 MG/ML VIAL ONE (19:12)
[2017-03-16] MEDS ORDERED: FLUCONAZOLE 100 MG TABLET ONE (19:13)
[2017-03-16 19:22] VITALS: BP 150/60
== END 2017-03-16 19:24 | disposition home or self-care (01) ==
LOC: ER 17:16
DX: J44.1 Chronic obstructive pulmonary disease with (acute) exacerbation (principal); J06.9 Acute upper respiratory infection, unspecified; B49 Unspecified mycosis; Z87.891 Personal history of nicotine dependence